=== PATIENT | female | born 1960 | race Caucasian/White ===

== ENCOUNTER 2023-03-23 08:07 | Outpatient (RCR) | payer BC, SELFPAY ==
[2023-03-19 10:15] VITALS: BP 109/85
[2023-03-19] MEDS: INVANZ 60 MG IV (10:22)
[2023-03-19 11:00] VITALS: BP 103/55
[2023-03-20] MEDS: INVANZ 60 MG IV (10:15)
[2023-03-20 10:20] VITALS: BP 123/53
[2023-03-21] MEDS: INVANZ 60 MG IV (10:21)
[2023-03-21 10:23] VITALS: BP 98/42
[2023-03-22 09:00] VITALS: BP 105/46
[2023-03-22] MEDS: INVANZ 60 MG IV (09:18)
[2023-03-23 08:24] VITALS: BP 99/54
[2023-03-23] MEDS: INVANZ 60 MG IV (08:27)
== END 2023-03-26 09:43 | disposition home or self-care (01) ==
LOC: OID 08:07
PROVIDERS: ATTENDING PHYSICIAN Student in an Organized Health Care Education/Training Program; FAMILY PHYSICIAN Family Medicine
DX: N39.0 Urinary tract infection, site not specified (principal); B96.20 Unspecified Escherichia coli [E. coli] as the cause of diseases classified elsewhere; Z16.12 Extended spectrum beta lactamase (ESBL) resistance
CPT/HCPCS: 96365; 96374; J1335

== ENCOUNTER → 2023-06-04 07:25 | Outpatient (REF) | payer BC, SELFPAY | LOC: WDC 07:25 | PROVIDERS: ATTENDING PHYSICIAN Nurse Practitioner Adult Health; FAMILY PHYSICIAN Family Medicine | DX: Z12.31 Encounter for screening mammogram for malignant neoplasm of breast (principal) | CPT/HCPCS: 77063; 77067 ==

== ENCOUNTER → 2023-07-04 06:28 | Day surgery (SDC) | payer BC, SELFPAY | LOC: GI 06:28 | PROVIDERS: ATTENDING PHYSICIAN Internal Medicine | DX: K44.9 Diaphragmatic hernia without obstruction or gangrene (principal); K31.819 Angiodysplasia of stomach and duodenum without bleeding; D50.9 Iron deficiency anemia, unspecified | CPT/HCPCS: 43255 ==

== ENCOUNTER → 2023-10-09 06:30 | Day surgery (SDC) | payer BC, SELFPAY | LOC: GI 06:30 | PROVIDERS: ATTENDING PHYSICIAN Internal Medicine | DX: K44.9 Diaphragmatic hernia without obstruction or gangrene (principal); K31.819 Angiodysplasia of stomach and duodenum without bleeding; K92.2 Gastrointestinal hemorrhage, unspecified; D50.9 Iron deficiency anemia, unspecified; K29.50 Unspecified chronic gastritis without bleeding | CPT/HCPCS: 43255; 43239; 88305; 88341; 88342 ==

== ENCOUNTER 2023-11-22 08:20 | Outpatient (RCR) | payer BC, SELFPAY ==
[2023-11-15 08:30] VITALS: BP 105/56
[2023-11-15] MEDS: VENOFER 110 MG IV (08:52)
[2023-11-15 10:00] VITALS: BP 107/55
[2023-11-22] MEDS: VENOFER 110 MG IV (08:56)
[2023-11-22 08:59] VITALS: BP 116/55
[2023-11-22 10:20] VITALS: BP 111/56
== END 2023-11-25 08:08 | disposition home or self-care (01) ==
LOC: OID 08:20
PROVIDERS: ATTENDING PHYSICIAN Internal Medicine
DX: D50.9 Iron deficiency anemia, unspecified (principal); K29.61 Other gastritis with bleeding; K31.A14 Gastric intestinal metaplasia without dysplasia, involving the cardia; K31.819 Angiodysplasia of stomach and duodenum without bleeding
CPT/HCPCS: 96365; J1756

== ENCOUNTER 2023-12-12 08:26 | Outpatient (RCR) | payer BC, SELFPAY ==
[2023-11-28 08:40] VITALS: BP 117/55
[2023-11-28] MEDS: VENOFER 110 MG IV (08:47)
[2023-12-05] MEDS: VENOFER 110 MG IV (08:54)
[2023-12-05 09:08] VITALS: BP 115/54
[2023-12-05 10:00] VITALS: BP 104/51
[2023-12-12] MEDS: VENOFER 110 MG IV (08:57)
[2023-12-12 09:01] VITALS: BP 101/63
[2023-12-12 10:15] VITALS: BP 107/52
== END 2023-12-26 23:59 | disposition home or self-care (01) ==
LOC: OID 08:26
PROVIDERS: ATTENDING PHYSICIAN Internal Medicine
DX: D50.9 Iron deficiency anemia, unspecified (principal); K29.61 Other gastritis with bleeding; K31.A14 Gastric intestinal metaplasia without dysplasia, involving the cardia; K31.819 Angiodysplasia of stomach and duodenum without bleeding
CPT/HCPCS: 96365; J1756

== ENCOUNTER → 2024-06-05 07:38 | Outpatient (REF) | payer BC, SELFPAY | LOC: WDC 07:38 | PROVIDERS: ATTENDING PHYSICIAN Nurse Practitioner Adult Health; FAMILY PHYSICIAN Family Medicine | DX: Z12.31 Encounter for screening mammogram for malignant neoplasm of breast (principal) | CPT/HCPCS: 77063; 77067 ==